=== PATIENT | male | born 1960 | race Caucasian/White ===

== ENCOUNTER → 2023-06-14 07:05 | Outpatient (REF) | payer BC, SELFPAY | LOC: RAD 07:05 | PROVIDERS: ATTENDING PHYSICIAN Family Medicine | DX: F17.200 Nicotine dependence, unspecified, uncomplicated (principal) | CPT/HCPCS: 71271 ==

== ENCOUNTER → 2023-11-24 17:02 | Outpatient (REF) | payer BC, SELFPAY | LOC: RAD 17:02 | PROVIDERS: ATTENDING PHYSICIAN Family Medicine | DX: I82.619 Acute embolism and thrombosis of superficial veins of unspecified upper extremity (principal) | CPT/HCPCS: 93971 ==